=== PATIENT | female | born 2000 | race Caucasian/White ===

== ENCOUNTER 2024-10-21 11:41 | Outpatient (CLI) | payer BC, OTHER ==
[2024-10-21 12:40] LABS: LEUKOCYTE ESTERASE ,URINE NEGATIVE (Neg); MEAN PLATELET VOLUME 9.8 FL (7.4-10.4); NITRITES, URINE NEGATIVE (Neg); OCCULT BLOOD,URINE NEGATIVE (Neg); RED CELL DISTRIBUTION WIDTH 13.5 % (11.5-14.5)
[2024-10-21 12:45] LABS: UA COLLECTION TYPE NON-SPECIFIED
[2024-10-21 12:58] LABS: CHOL/HDL RATIO 2.5 (0.00-4.99); LDL CHOLESTEROL 75 MG/DL (50-100)
== END 2024-10-21 23:59 | disposition home or self-care (01) ==
LOC: RAD 11:41
PROVIDERS: ATTEND Nurse Practitioner Family
DX: F41.1 Generalized anxiety disorder (principal); Z87.09 Personal history of other diseases of the respiratory system; R53.83 Other fatigue; Z76.89 Persons encountering health services in other specified circumstances; Z83.49 Family history of other endocrine, nutritional and metabolic diseases
CPT/HCPCS: 36415; 80061; 81003; 83001; 84402; 84403; 84439; 84443; 85025